=== PATIENT | female | born 1955 | race Caucasian/White ===

== ENCOUNTER 2022-01-13 18:22 | Emergency (ER) | payer OTHER ==
--- OUTSIDE RECORDS SUMMARY | 2022-01-13 18:26 | XMS REPORT | Continuity of Care Document ---
:1955 Author Organization [facility] t Address 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 00:00: g of this 00 note might be different from the original. 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 Social History Social Habit Start Date Stop Date Quantity Comments Source History [facility] Dwain Shortt h Alcohol Std Drinks History [facility] Dwain Hernandez h Alcohol Binge History [facility] Dwain Shortt h Alcohol Comment Tobacco use and 2018-12-30 2018-12-30 Smokeless tobacco [facility] exposure 00:00:00 00:00:00 non-user Alcohol intake 2018-12-30 2018-12-30 Lifetime Prakash Hea lth 00:00:00 00:00:00 non-drinker (finding) History [facility] 2018-12-30 2018-12-30 1 Dwain Shortt h Alcohol Frequency 00:00:00 00:00:00 Sex [birth year] Prakash He alth 00:00:00 00:00:00 Smoking Status Start Date Stop Date Source Occasional tobacco smoker 2018-12-30 00:00:00 [facility] Medications This patient has no known medications. Procedures This patient has no known procedures. Plan of Care Planned Activity Planned Date Details Comments Source Future Scheduled Test 2022-02-[address] [facility] 00:00:00 (>/= 19 yrs) [code = IMM Influenza Seasonal (>/= 19 yrs)] Future Scheduled Test [address] [facility] 00:00:00 neoplasm of colon (procedure) [code = 712125238] Future Scheduled Test [address] [facility] 00:00:00 (Yearly) [code = Breast Cancer Scrn (Yearly)] Future Scheduled Test 1962 Imm Pneumococcal 65+ (1 [facility] 00:00:00 - PCV) [code = Imm Pneumococcal 65+ (1 - PCV)] Future Scheduled Test 1957-01-31 COVID-19 Vaccine (#1) [facility] 00:00:00 [code = COVID-19 Vaccine (#1)] Future Scheduled Test 1955 Fluoride Varnish [code [facility] 00:00:00 = Fluoride Varnish] Encounters Start End Encounter Admission Attending Care Care Encounter Source Date/Time Date/Time Type Type Clinicians Facility Department ID 2021-06-29 2021-06-29 Out[facility] [place] [id number] [place] 04:04:00 04:04:00 [id number] 2021-06-20 2021-06-20 Out[facility] [place] [id number] [place] 09:31:00 09:31:00 HN [id number] [facility] 2021-06-13 2021-06-13 Out[facility] [place] [id number] [place] 02:32:00 02:32:00 HN [id number] [facility] 2021-06-08 2021-06-08 Out[facility] [place] [id number] [place] 11:27:00 11:27:00 HN [id number] [facility] 2021-06-02 2021-06-02 Outpatient [facility] [place] [id number] [place] 12:36:00 12:36:00 HN [id number] [facility] 2021-05-24 2021-05-24 Outpatient [id number] [place] 02:50:00 02:50:00 HN [id number] [facility] 2021-05-22 2021-05-22 Outpatient [id number] [place] 03:10:00 03:10:00 HN [id number] [facility] 2021-03-28 2021-03-28 Outpatient [id number] [place] 11:42:00 11:42:00 HN [id number] [facility] 2020-12-06 2020-12-06 Outpatient [id number] [place] 11:48:00 11:48:00 HN [id number] [facility] 2019-07-03 2019-07-03 Outpatient [id number] [place] 12:49:00 12:49:00 HN [id number] [facility] 2019-06-23 2019-06-23 Outpatient [id number] [place] 10:25:00 10:25:00 HN [id number] [facility] 2019-05-22 2019-05-22 Outpatient [id number] [place] 09:42:00 09:42:00 HN [id number] [facility] 2019-05-20 2019-05-20 Outpatient [id number] [place] 03:56:00 03:56:00 HN [id number] [facility] 2018-12-31 2018-12-31 Outpatient [facility] [id number] [address] [place] [address] 00:00:00 00:00:00 Health 2018-12-30 2018-12-30 Emergency [facility] [id number] [place] 16:23:39 16:23:39 Health 2018-12-30 2018-12-30 Emergency [facility] [id number] [place] 13:45:40 13:45:40 Health Results This patient has no known results.
[2022-01-13] MEDS ORDERED: ALBUTEROL 2.5 MG/3 ML NEB SOL ONE (19:33)
[2022-01-13] MEDS ORDERED: METHYLPREDNISOLONE 125 MG INJ ONE (19:33)
[2022-01-13] MEDS ORDERED: IPRATROPIUM BROM 0.5MG/2.5ML ONE (19:33)
--- NOTE | 2022-01-13 19:33 | RAD REPORT ---
EXAM DESCRIPTION: RAD - Chest Pa And Lat (2 Views) - 01/13/2022 6:59 pm CLINICAL HISTORY: COUGH Chest pain. COMPARISON: No comparisons TECHNIQUE: PA and lateral views of the chest were obtained. FINDINGS: The lungs are hyperexpanded compatible with COPD. The heart is upper limit of normal in si ze. No fracture or aggressive bony process. IMPRESSION: COPD without acute process identified.
[2022-01-13 19:53] LABS: Absolute Lymphocytes (CBC) 1.5 K/uL (0.7-4.9); Hematocrit 44.7 % (36.0-45.0); MCV 87.7 fL (80-100); MPV 8.4 fL (7.6-11.3)
[2022-01-13 20:06] LABS: Potassium 4.3 mmol/L (3.5-5.1)
[2022-01-13] MEDS ORDERED: LORAZEPAM 1 MG TABLET ONE (20:46)
[2022-01-13] MEDS ORDERED: NA CHLORIDE 0.9% 1,000 ML ONE (20:46)
--- NOTE | 2022-01-13 22:04 | ER ---
Nurse's Notes [facility] Name: Nataliya Lee Age: 66 yrs Sex: Female : 1955 Arrival Date: 01/13/2022 Time: 18:26 Bed 12 Private MD: Diagnosis: Acute bronchitis, unspecified;COPD/ Chronic obstructive pulmonary disease with (acute) exacerbation Presentation: 01/13 18:38 Chief complaint: Patient states: I haven't been able to breathe for almost two weeks bm7 and it got so bad I had to call my son to bring me in. I am so short of breath. Coronavirus screen: Client presents with at least one sign or symptom that may indicate coronavirus-19. Standard/surgical mask placed on the client. Ebola Screen: No symptoms or risks identified at this time. Initial Sepsis Screen: Does the patient meet any 2 criteria? RR > 20 per min. Does the patient have a suspected source of infection? No. Patient's initial sepsis screen is negative. Risk Assessment: Do you want to hurt yourself or someone else? Patient reports no desire to harm self or others. Onset of symptoms is unknown. 18:38 Method Of Arrival: Ambulatory bm7 18:38 Acuity: DARYN 3 bm7 Triage Assessment: 18:41 General: Appears in no apparent distress. comfortable, Behavior is calm, cooperative, bm7 appropriate for age. Pain: Denies pain. EENT: No deficits noted. No signs and/or symptoms were reported regarding the EENT system. Neuro: No deficits noted. Cardiovascular: Reports shortness of breath, Chest pain is denied. Respiratory: Reports shortness of breath at rest on exertion cough that is labored breathing Airway is patent Respiratory effort is even, Respiratory pattern is regular, symmetrical, tachypnea Breath sounds with wheezes bilaterally. Onset: The symptoms/episode began/occurred gradually, the patient has moderate shortness of breath. GI: No deficits noted. No signs and/or symptoms were reported involving the gastrointestinal system. : No deficits noted. No signs and/or symptoms were reported regarding the genitourinary system. Derm: No deficits noted. No signs and/or symptoms reported regarding the dermatologic system. Musculoskeletal: No deficits noted. No signs and/or symptoms reported regarding the musculoskeletal system. Historical: - Allergies: 18:41 No Known Allergies; bm7 - Home Meds: 18:41 None [Active]; bm7 - PMHx: 18:41 None; bm7 - PSHx: 18:41 None; bm7 - Immunization history:: Adult Immunizations up to date, Client reports having NOT received the Covid vaccine. - Social history:: Smoking status: Patient/guardian denies using tobacco, but has a distant history of tobacco abuse. Screenin:19 Abuse screen: Denies threats or abuse. Denies injuries from another. Nutritional tw5 screening: No deficits noted. Tuberculosis screening: No symptoms or risk factors identified. Fall Risk None identified. Assessment: 19:19 General: Appears in no apparent distress. Behavior is calm, cooperative, appropriate tw5 for age, Reports "For a few weeks now I just feel like my sinuses are full. I am having a hard time catching my breath and I feel even after coughing gunk is stuck in my chest.". Cardiovascular:. Respiratory: Airway is patent Trachea midline Respiratory effort is even, unlabored. 19:43 Respiratory: Breath sounds are coarse bilaterally. Derm: No deficits noted. tw5 20:16 General: Appears Behavior is anxious, Reports. tw5 22:16 Cardiovascular: Rhythm is. tw5 Vital Signs: 18:38 BP 154 / 87; Pulse 100; Resp 20; Temp 98.2(O); Pulse Ox 94% on R/A; Weight 58.97 kg bm7 (R); Height 5 ft. 5 in. (165.10 cm); Pain 0/10; 19:19 BP 124 / 101; Pulse 102; Resp 20; Pulse Ox 96% on 1 lpm NC; tw5 20:16 BP 146 / 91; Pulse 90; Resp 18; Pulse Ox 99% on 2 lpm NC; tw5 22:16 BP 123 / 71; Pulse 80; Pulse Ox 96% on R/A; tw5 18:38 Body Mass Index 21.63 (58.97 kg, 165.10 cm) bm7 19:19 Patient states she does not wear oxygen. Oxygen placed on patient for patient comfort. tw5 ED Course: 18:26 Patient arrived in ED. as 18:27 [facility] kb 18:27 Drew Castro MD is Attending Physician. kb 18:41 Triage completed. bm7 18:41 Arm band placed on right wrist. bm7 19:01 Chest Pa And Lat (2 Views) XRAY In Process Unspecified. EDMS 19:18 Jesse Foy, RN is Primary Nurse. as6 19:19 Awaiting lab results. tw5 19:19 Patient has correct armband on for positive identification. Bed in low position. Call tw5 light in reach. Side rails up X 1. Pulse ox on. NIBP on. Door closed. Noise minimized. Lights dimmed. Warm blanket given. Verbal reassurance given. 19:19 Oxygen administration via nasal cannula \\T\\ 1L/min. tw5 19:43 Basic Metabolic Panel Sent. tw5 19:43 CBC with Diff Sent. tw5 19:43 Initial lab(s) drawn, by me, sent to lab. Inserted saline lock: 20 gauge in left tw5 antecubital area, using aseptic technique. Blood collected. 20:29 Primary Nurse role handed off by Jesse Foy, RN tw5 20:29 Karen Pyle is Primary Nurse. tw5 22:16 No provider procedures requiring assistance completed. IV discontinued, intact, tw5 bleeding controlled, No redness/swelling at site. Pressure dressing applied. Administered Medications: 19:42 Drug: DuoNeb (albuterol 2.5 mg, ipratropium 0.5 mg) (3:1) (2.5 mg - 0.5 mg) 3 ml Route: tw5 Nebulizer; 20:29 Follow up: Response: No adverse reaction tw5 19:43 Drug: SOLU-Medrol (methylPrednisoLONE) 125 mg Route: IVP; Site: right antecubital; tw5 20:29 Follow up: Response: No adverse reaction tw5 20:41 Drug: Ativan (LORazepam) 1 mg Route: PO; tw5 22:17 Follow up: Response: No adverse reaction; Anxiety decreased tw5 20:44 Drug: NS 0.9% 1000 ml Route: IV; Rate: 1 bolus; Site: right antecubital; tw5 22:17 Follow up: Response: No adverse reaction; IV Status: Completed infusion; IV Intake: tw5 1000ml Medication: 22:16 VIS not applicable for this client. tw5 Intake: 22:17 IV: 1000ml; Total: 1000ml. tw5 Outcome: 22:03 Discharge ordered by . kb 22:16 Discharged to home ambulatory, with friend. tw5 22:16 Condition: improved 22:16 Discharge instructions given to patient, Instructed on discharge instructions, follow up and referral plans. medication usage, Demonstrated understanding of instructions, follow-up care, medications, Prescriptions given X 3. 22:17 Patient left the ED. tw5 Signatures: Dispatcher [employer] EDMS Cristiane Lopez, HELLEN-C [employer] SUPERVISOR-Kavitha Ho Brittany, RN RN bm7 Karen Pyle tw5 Jesse Foy RN RN as6
--- NOTE | 2022-01-13 22:04 | EDPHYS ---
Physician Documentation [facility] Name: Nataliya Lee Age: 66 yrs Sex: Female : 1955 Arrival Date: 01/13/2022 Time: 18:26 Bed 12 Private MD: ED Physician Drew Castro HPI: 01/13 20:00 This 66 yrs old Female presents to ER via Ambulatory with complaints of Shortness Of kb Breath, Cough, Headache. 20:00 The patient has shortness of breath with light activity. Onset: The symptoms/episode kb began/occurred 2 week(s) ago, and became worse today. Duration: The symptoms are continuous. The patient's shortness of breath is aggravated by exertion, is alleviated by nothing. Associated signs and symptoms: Pertinent positives: non-productive cough. Severity of symptoms: At their worst the symptoms were moderate in the emergency department the symptoms are unchanged. The patient has not experienced similar symptoms in the past. The patient has not recently seen a physician. Pt reports wheezing, shortness of breath and cough for 2 weeks. symptoms worse today . Historical: - Allergies: 18:41 No Known Allergies; bm7 - Home Meds: 18:41 None [Active]; bm7 - PMHx: 18:41 None; bm7 - PSHx: 18:41 None; bm7 - Immunization history:: Adult Immunizations up to date, Client reports having NOT received the Covid vaccine. - Social history:: Smoking status: Patient/guardian denies using tobacco, but has a distant history of tobacco abuse. ROS: 19:59 Constitutional: Negative for fever, chills, and weight loss. kb 19:59 Respiratory: Positive for cough, shortness of breath, wheezing. 19:59 All other systems are negative. Exam: 19:59 Constitutional: This is a well developed, well nourished patient who is awake, alert, kb and in no acute distress. Head/Face: Normocephalic, atraumatic. ENT: Moist Mucous membranes Cardiovascular: Regular rate and rhythm with a normal S1 and S2. No gallops, murmurs, or rubs. No pulse deficits. Abdomen/GI: Soft, non-tender. No distention Skin: Warm, dry with normal turgor. Normal color. MS/ Extremity: Pulses equal, no cyanosis. Neurovascular intact. Full, normal range of motion. Neuro: Awake and alert, GCS 15, oriented to person, place, time, and situation. Moves all extremities. Normal gait. Psych: Awake, alert, with orientation to person, place and time. Behavior, mood, and affect are within normal limits. 19:59 Respiratory: the patient does not display signs of respiratory distress, Respirations: normal, Breath sounds: wheezing: inspiratory expiratory that is moderate, is scattered. Vital Signs: 18:38 BP 154 / 87; Pulse 100; Resp 20; Temp 98.2(O); Pulse Ox 94% on R/A; Weight 58.97 kg bm7 (R); Height 5 ft. 5 in. (165.10 cm); Pain 0/10; 19:19 BP 124 / 101; Pulse 102; Resp 20; Pulse Ox 96% on 1 lpm NC; tw5 20:16 BP 146 / 91; Pulse 90; Resp 18; Pulse Ox 99% on 2 lpm NC; tw5 22:16 BP 123 / 71; Pulse 80; Pulse Ox 96% on R/A; tw5 18:38 Body Mass Index 21.63 (58.97 kg, 165.10 cm) bm7 19:19 Patient states she does not wear oxygen. Oxygen placed on patient for patient comfort. tw5 MDM: 18:40 Patient medically screened. kb 20:00 Data reviewed: vital signs, nurses notes. Data interpreted: Pulse oximetry: on room air kb is 96 %. Interpretation: normal. 20:01 Counseling: I had a detailed discussion with the patient and/or guardian regarding: the kb historical points, exam findings, and any diagnostic results supporting the discharge/admit diagnosis, radiology results, the need for outpatient follow up, a family practitioner, to return to the emergency department if symptoms worsen or persist or if there are any questions or concerns that arise at home. 01/13 18:41 Order name: CBC with Diff; Complete Time: 20:32 kb 01/13 18:41 Order name: Basic Metabolic Panel; Complete Time: 20:11 kb 01/13 18:41 Order name: Chest Pa And Lat (2 Views) XRAY; Complete Time: 19:35 kb 01/13 18:41 Order name: IV Start; Complete Time: 19:43 kb Administered Medications: 19:42 Drug: DuoNeb (albuterol 2.5 mg, ipratropium 0.5 mg) (3:1) (2.5 mg - 0.5 mg) 3 ml Route: tw5 Nebulizer; 20:29 Follow up: Response: No adverse reaction tw5 19:43 Drug: SOLU-Medrol (methylPrednisoLONE) 125 mg Route: IVP; Site: right antecubital; tw5 20:29 Follow up: Response: No adverse reaction tw5 20:41 Drug: Ativan (LORazepam) 1 mg Route: PO; tw5 22:17 Follow up: Response: No adverse reaction; Anxiety decreased tw5 20:44 Drug: NS 0.9% 1000 ml Route: IV; Rate: 1 bolus; Site: right antecubital; tw5 22:17 Follow up: Response: No adverse reaction; IV Status: Completed infusion; IV Intake: tw5 1000ml Disposition Summary: 01/13/22 22:03 Discharge Ordered Location: Home kb Condition: Stable kb Diagnosis - Acute bronchitis, unspecified kb - COPD/ Chronic obstructive pulmonary disease with (acute) exacerbation kb Followup: kb - With: Emergency Department - When: As needed - Reason: Worsening of condition Followup: kb - With: Private Physician - When: 2 - 3 days - Reason: Recheck today's complaints, Continuance of care, Re-evaluation by your physician Discharge Instructions: - Discharge Summary Sheet kb - Acute Bronchitis, Adult, [id number] kb Forms: - Medication Reconciliation Form kb - Thank You Letter kb - Antibiotic Education kb - Prescription Opioid Use kb Prescriptions: - albuterol sulfate 90 mcg/actuation Inhalation HFA aerosol inhaler - inhale 2 puff by INHALATION route every 4-6 hours As needed; 1 Inhaler; kb Refills: 0, Product Selection Permitted - Prednisone 20 mg Oral Tablet - take 1 tablet by ORAL route once daily for 5 days; 5 tablet; Refills: 0, kb Product Selection Permitted - Zithromax 500 mg Oral Tablet - take 1 tablet by ORAL route once daily for 5 days; 5 tablet; Refills: 0, kb Product Selection Permitted Addendum: 01/17/2022 16:07 Co-signature as Attending Physician, Drew Castro MD. r n Signatures: Dispatcher [employer] EDCristiane Gunter, SERVICE CREW SUPERVISOR-C SERVICE CREW SUPERVISOR-CkDrew Ross MD MD rn McCarthy, Brittany, DILAN RN [email or web address] Karen Pyle tw5
[2022-01-14 00:30] VITALS: TEMP 98.2
[2022-01-14 00:32] VITALS: BP 123/71; O2SAT 96
== END 2022-01-13 22:17 | disposition home or self-care (01) ==
LOC: ER 18:22
DX: J20.9 Acute bronchitis, unspecified (principal); J44.0 Chronic obstructive pulmonary disease with (acute) lower respiratory infection; J44.1 Chronic obstructive pulmonary disease with (acute) exacerbation
CPT/HCPCS: 96361; 85025; 80048; 36415; 71046; 94640; 96374; 99285; J7030; J2930